=== PATIENT | female | born 1995 ===

== ENCOUNTER 2021-12-01 02:24 | Outpatient (CLI) | payer OTHER ==
[2021-12-01] MEDS ORDERED: FUSION PLUS CA1 EACH PO (07:00)
[2021-12-01] MEDS ORDERED: CEPHALEXIN500 M1 PO (07:00)
== END 2021-12-01 07:20 | disposition home or self-care (01) ==
LOC: OBS/DEL 02:24
PROVIDERS: ATTEND Specialist
DX: O26.893 Other specified pregnancy related conditions, third trimester (principal); Z3A.32 32 weeks gestation of pregnancy; N89.8 Other specified noninflammatory disorders of vagina